=== PATIENT | female | born 1955 | race Caucasian/White ===

== ENCOUNTER 2016-12-09 12:08 | Emergency (ER) | payer MEDICARE, OTHER ==
[2016-12-09 13:37] VITALS: BP 98/60
--- NOTE | 2016-12-14 10:13 | ER ---
DATE SEEN: 12/09/2016 TIME SEEN: The patient was seen at 1220 hours. HISTORY OF PRESENT ILLNESS: This is a 61-year-old 2, para 2, woman who had onset of MS at age approximately 32 comes in with a history of decreased stooling. She takes MiraLAX daily, Senna [id number], and stopped smoking in 1998. Has depression. Weighs 150 pounds. Thirty years' duration of MS. She has had neurogenic bladder, dyslipidemia, frequent urinary tract infections, and documented in the chart-macular degeneration, however, she has been seen by Ophthalmology recently and said she did not have macular degeneration. This week, on Sunday, 3 days ago, they discontinued baclofen and propranolol was started. She notes she has had small bowel movements, but concerned about potential constipation. PAST SURGICAL HISTORY: Appendectomy, tubal, , and D and C. The patient has a suprapubic cystostomy. Last colonoscopy was done in December 2012. PAST MEDICAL HISTORY: As noted above. MEDICATIONS: As noted above. ALLERGIES: Penicillin. REVIEW OF SYSTEMS: HEENT: Hearing is good. Eyes, the patient sees fairly good. Wears glasses. No difficulty swallowing. No shortness of breath, cough, chest pain, irregular heartbeat, lightheadedness, or dizziness. GASTROINTESTINAL: No blood in the stool, black or tarry stool, or change in bowels, however, she notes she has smaller stools. No GERD. : Frequency, urgency, dysuria does have none, but she has incontinence of urine, wears Attends. MUSCULOSKELETAL: Decreased absent strength lower extremities. She has no decubitus ulcers. PHYSICAL EXAMINATION: VITAL SIGNS: Blood pressure 130/95, heart rate 81, respirations 16, oxygen saturation 97%, and temperature is 36.6 degrees centigrade. GENERAL: A very pleasant woman, who in spite of her stressors and pressure is able to generate a heartfelt smile and is very cordial. She is attended by her . He is very attentive to her needs. HEENT: PERRLA intact. Pharynx without abnormality. No thyromegaly or masses in neck. NECK: No cervical adenopathy. LUNGS: Clear without rales, rhonchi, or wheezes. HEART: S1, S2. No murmur. ABDOMEN: Soft. No guarding. No abdominal discomfort. She has a suprapubic catheter in place. Previous scar is healed. Mild discomfort slightly left of the midline incision from a . : No appreciable palpable stool noted. Quick look ultrasound, no extensive stool noted. She has had good peristalsis. The rectal exam is clear with ampullae empty. EXTREMITIES: Lower extremities with trace edema present. Deep tendon reflexes in upper and lower extremities are present. No upgoing toes. No decubitus ulcer. The patient has constipation. I chose not to do an x-ray. On the quick look ultrasound, there was no extensive stool noted. LABORATORY VALUES: White count is normal 7900, PMNs 79, lymphocytes 16, monos 4, hemoglobin 13.2, and platelets normal at 368,000. Sodium slightly low at 128, chloride low at 96, potassium 3.9 low normal, and glucose 119. Urinalysis not performed. ASSESSMENT: 1. Constipation. 2. Hyponatremia, hypochloremia. 3. The patient is not on water pills. 4. Salt-losing nephropathy, etiology indeterminate, needs to add salt to her diet. 5. Constipation, possibly related to hyponatremia and hypochloremia. Consider use of salt tablets. 6. Multiple sclerosis. 7. Paralysis of lower extremities. 8. No hypertension. 9. Status post previous , tubal ligation, appendectomy, and D and C. 10.Suprapubic cystostomy. 11.Dyslipidemia with cystostomy for neurogenic bladder. 12.History of depression. PLAN: If she still feels that she would like to try a stool medicine, to try lactulose 1 tablespoon b.i.d. Then, once stools are controlled, stay on this daily or try this for a week or try it for another week. If lactulose does not work, then try instead Sorbitol 70% 30 mL orally daily, and then once stool has stabilized, then a tablespoon daily. Follow up with doctor in a week. She has marked constipation, and if develops difficult problems to see the doctor earlier. I think she should get along reasonably well. She is to add salt to her diet. /[id number] VIJAYA/MAXI ALFORDD
== END 2016-12-09 13:28 | disposition home or self-care (01) ==
LOC: FB.ED 12:08
DX: K59.00 Constipation, unspecified (principal); E87.1 Hypo-osmolality and hyponatremia; E87.8 Other disorders of electrolyte and fluid balance, not elsewhere classified; G35 Multiple sclerosis; E78.5 Hyperlipidemia, unspecified; G83.9 Paralytic syndrome, unspecified; Z88.0 Allergy status to penicillin; Z90.49 Acquired absence of other specified parts of digestive tract
CPT/HCPCS: 36415; 80053; 84443; 85025; 99283

== ENCOUNTER 2016-12-13 15:05 | Emergency (ER) | payer MEDICARE, OTHER, MEDICAID ==
--- NOTE | 2016-12-13 15:41 | EDM.PDOC ---
ED HPI GENERAL MEDICAL PROBLEM - General Chief Complaint: Gastrointestinal Problem Stated Complaint: CONSTIPATION Time Seen by Provider: 12/13/16 15:25 Source of Information: Reports: Patient, Old Records History Limitations: Reports: No Limitations - History of Present Illness INITIAL COMMENTS - FREE TEXT/NARRATIVE: 61 yo female patient of Dr. Stubbs was seen here on 12/[address] Jean prescribed Miralax which she has been taking once a day, Lactulose and Sorbitol which she just started yesterday. Had an appt at 4 pm to see her provider, but she says they told her to come to the ER instead. She has not had fever or vomiting. She has some abdominal discomfort. She had an enema at home with some results, but not a lot of relief. Appetite has been diminished for about a week with reduced liquid and solid intake. Constipation is a chronic condition due to to her paraplegia. Onset: Gradual Duration: Chronic (Worse over the past week.), Getting Worse Location: Reports: Abdomen Quality: Reports: Dull Severity: Mild Improves with: Reports: None Worsens with: Reports: Other (? time) Context: Reports: Other (Chronic constipation) Associated Symptoms: Reports: Loss of Appetite. 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 (see below) (Miralax qd) - Related Data Allergies Allergy/AdvReac Type Severity Reaction Status Date / Time Penicillins Allergy Mild UNKNOWN Verified 12/13/16 15:19 Home Meds: Home Meds Polyethylene Glycol 3350 [MiraLAX] 17 gm PO DAILY 12/10/12 [History] Sertraline HCl 100 mg PO DAILY 12/10/12 [History] Lactulose 10 gm PO BID #1 bottle 12/09/16 [Rx] Propranolol HCl [Propranolol] 10 mg PO TID 12/09/16 [History] Ciprofloxacin HCl 250 mg PO BID #10 tablet 12/13/16 [Rx] Sorbitol [Sorbitol 70%] 30 ml PO DAILY 12/13/16 [History] Past Medical History HEENT History: Reports: Other (See Below) Other HEENT History: wears glasses Cardiovascular History: Reports: High Cholesterol Gastrointestinal History: Reports: Chronic Constipation Genitourinary History: Reports: Urinary Incontinence, Other (See Below) Other Genitourinary History: Catheter in place, suprapubic STAFFING ADMINISTRATOR History: Reports: Other Musculoskeletal History: MS, Wheelchair bound Neurological History: Reports: MS Other Neuro History: Wheelchair bound Psychiatric History: Reports: Depression - Infectious Disease History Infectious Disease History: Reports: Chicken Pox - Past Surgical History HEENT Surgical History: Reports: None GI Surgical History: Reports: Appendectomy, Colonoscopy Female Surgical History: Reports: Section Musculoskeletal Surgical History: Reports: None Social & Family History - Family History Family Medical History: Noncontributory - Tobacco Use Smoking Status *Q: Never Smoker Years of Tobacco use: 2 Used Tobacco, but Quit: Yes Month Tobacco Last Used: NO Second Hand Smoke Exposure: No - Alcohol Use Days Per Week of Alcohol Use: 0 - Recreational Drug Use Recreational Drug Use: No ED ROS GENERAL - Review of Systems Review Of Systems: See Below Constitutional: Reports: Decreased Appetite HEENT: Reports: No Symptoms Respiratory: Reports: No Symptoms Cardiovascular: Reports: No Symptoms GI/Abdominal: Reports: Abdominal Pain (mild, generalized.), Anorexia, Constipation, Decreased Appetite. Denies: Black Stool, Bloody Stool, Diarrhea, Distension, Hematemesis, Hematochezia, Melena, Nausea, Stool Incontinence, Vomiting : Reports: No Symptoms Musculoskeletal: Reports: No Symptoms Skin: Reports: No Symptoms Neurological: Reports: No Symptoms Psychiatric: Reports: No Symptoms ED EXAM, GI/ABD - Physical Exam Exam: See Below Exam Limited By: No Limitations General Appearance: Alert, WD/WN, No Apparent Distress Eyes: Bilateral: Normal Appearance Ears: Normal External Exam, Normal Canal, Hearing Grossly Normal Nose: Normal Inspection, Normal Mucosa, No Blood Throat/Mouth: Normal Inspection, Normal Lips, Normal Oropharynx, Normal Voice, No Airway Compromise Head: Atraumatic, Normocephalic Neck: Normal Inspection Respiratory/Chest: No Respiratory Distress, Lungs Clear, Normal Breath Sounds, No Accessory Muscle Use Cardiovascular: Regular Rate, Rhythm, No Edema GI/Abdominal Exam: Normal Bowel Sounds, Soft, Non-Tender Extremities: Normal Inspection Neurological: Alert, Oriented, CN II-XII Intact, Normal Cognition Psychiatric: Normal Affect, Normal Mood Skin Exam: Warm, Dry, Intact, Normal Color, No Rash Lymphatic: No Adenopathy Course - Orders/Labs/Meds Orders: Active Orders 24 hr Category Date Time Status CULTURE URINE [RM] Stat Lab 12/13/16 16:40 Received Labs: Laboratory Tests 1012/13/16 12/13/16 Range/Units 15:55 15:55 16:40 WBC 9.0 (4.5-12.0) X10-3/uL RBC 4.92 (3.23-5.20) x10(6)uL Hgb 14.7 (11.5-15.5) g/dL Hct 43.7 (30.0-51.3) % MCV 88.7 (80-96) fL MCH 29.9 (27.7-33.6) pg MCHC 33.8 (32.2-35.4) g/dL RDW 13.1 (11.5-15.5) % Plt Count 377 H (125-369) X10(3)uL Sodium 137 (135-145) mmol/L Potassium 4.4 (3.5-5.3) mmol/L Chloride 101 D (100-110) mmol/L Carbon Dioxide 25 (23-29) mmol/L BUN 6 (5-20) mg/dL Creatinine 0.8 (0.6-1.3) mg/dL Est Cr Clr Drug Dosing TNP Estimated GFR (MDRD) > 60 (>60) BUN/Creatinine Ratio 7.5 L (9-20) Glucose 110 (80-116) mg/dL Calcium 9.5 (8.6-10.2) mg/dL Urine Color Yellow (YELLOW) Urine Appearance Slightly cloudy (CLEAR) Urine pH 5.0 (5.0-6.5) Ur Specific [place] 1.030 H (1.010-1.025) Urine Protein Negative (NEGATIVE) mg/dL Urine Glucose (UA) Normal (NEGATIVE) mg/dL Urine Ketones Negative (NEGATIVE) mg/dL Urine Occult Blood Moderate H (NEGATIVE) Urine Nitrite Positive H (NEGATIVE) Urine Bilirubin Negative (NEGATIVE) Urine Urobilinogen Normal (NEGATIVE) mg/dL Ur Leukocyte Esterase Large H (NEGATIVE) Urine RBC 5-10 (0) Urine WBC 10-20 H (0) Ur Squamous Epith Cells Occasional (NS,R,O) Calcium Oxalate Crystal Few H (NS) Urine Bacteria Moderate H (NS) Meds: Medications Discontinued Medications Generic Name Dose Route Start Last Admin Trade Name Freq PRN Reason Stop Dose Admin Ciprofloxacin 250 mg 12/13/16 17:05 12/13/16 17:25 Ciprofloxacin Hcl PO 12/13/16 17:06 250 mg ONETIME ONE Administration Lactated Ringer's 1,000 mls @ 1,000 mls/hr 12/13/16 17:04 12/13/16 17:42 Ringers, Lactated IV 12/13/16 18:03 1,000 mls/hr BOLUS ONE Administration Lactulose 20 gm 12/13/16 15:57 12/13/16 16:10 Chronulac PO 12/13/16 15:58 20 gm ONETIME ONE Administration Departure - Departure Time of Disposition: 18:50 Disposition: Home, Self-Care 01 Condition: Fair Clinical Impression: Dehydration, mild, Chronic constipation, Cystitis - Discharge Information Prescriptions: Ciprofloxacin HCl 250 mg PO BID #10 tablet Referrals: Milan Stubbs MD [Primary Care Provider] - Forms: ED Department Discharge Additional Instructions: Take Miralax twice daily. If still not having regular, soft stools, then double the dose each time. Recheck with your provider as needed. Return for vomiting or fever. - My Orders Last 24 Hours: My Active Orders 12/13/16 16:40 CULTURE URINE [RM] Stat - Assessment/Plan Last 24 Hours: My Active Orders 12/13/16 16:40 CULTURE URINE [RM] Stat
[2016-12-13] MEDS ORDERED: Lactulose Soln 10 GM/15 ML 15 ML UD Cup PO ONE (15:57)
[2016-12-13] MEDS ORDERED: Lactated Ringers 1,000 ML IV ONE (17:04)
[2016-12-13] MEDS ORDERED: Ciprofloxacin 250 MG Tab PO ONE (17:05)
[2016-12-13 21:25] VITALS: BP 151/86
--- NOTE | 2016-12-18 16:37 | ER ---
FOLLOW-UP TO VISIT FROM 12/13/2016. I am dictating the urine culture result of Dr. Golden's patient, Shannon Nina. Diagnoses were constipation and she had UTI. Apparently, she has been started on Cipro. I have seen her not too long before and recently she was seen by Dr. Golden also. She was placed on Cipro to take twice a day. She has suprapubic catheter. ASSESSMENT: The patient has Elizabethkingia which is sensitive to Cipro and she has E. coli, which is resistant to Cipro. Consequently, I called the patient, she does not have any symptoms. She has suprapubic catheter. The patient will have colonization by multiple bacteria per IDSA and the IDSA suggests less is better, so with more different antibiotics more resistant organisms are likely to grow. As long as she is asymptomatic, she is to finish up her Cipro. No other antibiotics have been prescribed per IDSA recommendations. She can grow any bacteria with this foreign body with the catheter in place and we would prefer not to treat it because this increases the potential risk for other resistant organisms. /[id number] VIJAYA/MAXI PEREZ
== END 2016-12-13 19:20 | disposition home or self-care (01) ==
LOC: FB.ED 15:05
DX: K59.09 Other constipation (principal); N30.90 Cystitis, unspecified without hematuria; E86.0 Dehydration; E78.00 Pure hypercholesterolemia, unspecified; F32.9 Major depressive disorder, single episode, unspecified; Z88.0 Allergy status to penicillin; Z79.899 Other long term (current) drug therapy; Z90.49 Acquired absence of other specified parts of digestive tract
CPT/HCPCS: 36415; 80048; 81001; 85027; 87086; 87088; 96360; 99283; A9270; J7120; 87186

== ENCOUNTER 2021-10-18 15:02 | Emergency (ER) | payer MEDICARE, MEDICAID ==
[2021-10-18] MEDS ORDERED: Lidocaine 2% HCl 6 ML Jel MM STA (15:48)
[2021-10-18 16:45] VITALS: BP 133/83; PULSE 84
== END 2021-10-18 16:20 | disposition home or self-care (01) ==
LOC: FB.ED 15:02
DX: T83.091A Other mechanical complication of indwelling urethral catheter, initial encounter (principal); N31.9 Neuromuscular dysfunction of bladder, unspecified; G35 Multiple sclerosis; Z88.0 Allergy status to penicillin; Z79.899 Other long term (current) drug therapy; Z90.49 Acquired absence of other specified parts of digestive tract
CPT/HCPCS: 51705; 99283; A9270-GY

== ENCOUNTER 2021-11-07 13:22 | Emergency (ER) | payer MEDICARE, MEDICAID ==
[2021-11-07] MEDS: Lidocaine 2% HCl 6 ML Jel STA (13:30)
[2021-11-07 19:56] VITALS: BP 128/82; PULSE 68
== END 2021-11-07 13:50 | disposition home or self-care (01) ==
LOC: FB.ED 13:22
DX: T83.098A Other mechanical complication of other urinary catheter, initial encounter (principal); G35 Multiple sclerosis; E66.9 Obesity, unspecified; Z68.35 Body mass index [BMI] 35.0-35.9, adult; Z88.0 Allergy status to penicillin
CPT/HCPCS: 51705; 99283; A9270

== ENCOUNTER 2022-03-03 17:14 | Emergency (ER) | payer MEDICARE, MEDICAID ==
[2022-03-03] MEDS ORDERED: Ciprofloxacin 500 MG Tab PO STA (18:11)
[2022-03-03 19:57] VITALS: BP 149/77; PULSE 72
== END 2022-03-03 18:30 | disposition home or self-care (01) ==
LOC: FB.ED 17:14
DX: T83.511A Infection and inflammatory reaction due to indwelling urethral catheter, initial encounter (principal); N39.0 Urinary tract infection, site not specified; E66.9 Obesity, unspecified; Z68.30 Body mass index [BMI] 30.0-30.9, adult; Z88.0 Allergy status to penicillin
CPT/HCPCS: 51702; 81001; 87086; 87088; 87186; 99283; A9270-GY

== ENCOUNTER 2023-02-23 19:54 | Emergency (ER) | payer MEDICARE, OTHER, MEDICAID ==
[2023-02-23] MEDS ORDERED: Ciprofloxacin 500 MG Tab PO ONE (19:55)
[2023-02-23] MEDS ORDERED: Sodium Chloride 0.9% 10 ML Syringe FLUSH PRN (20:17)
[2023-02-23] MEDS ORDERED: Hydrocortisone Sodium Succinate 100 MG/2 ML SDV IVPUSH ONE (20:22)
[2023-02-23 20:28] LABS: BASOPHILS PERCENT AUTO 0.4 % (0.2-1.5); EOSINOPHILS ABSOLUTE AUTO 0.1 x10-3/uL (0.0-0.8); EOSINOPHILS PERCENT AUTO 1.3 % (0.6-8.1); HEMATOCRIT 36.9 % (34.2-48.2); HEMOGLOBIN 12.7 g/dL (11.4-15.5); LYMPHOCYTES ABSOLUTE AUTO 0.6 x10-3/uL (1.0-4.4); LYMPHOCYTES PERCENT AUTO 11.6 % (18.4-52.1); MEAN CORPUSCULAR HEMOGLOBIN 31.3 pg (23.9-33.9); MEAN CORPUSCULAR HGB CONC 34.5 g/dL (31.9-34.8); MEAN CORPUSCULAR VOLUME 90.8 fL (76.7-100.5); MEAN PLATELET VOLUME 8.5 fL (7.1-12.4); MONOCYTES ABSOLUTE AUTO 0.3 x10-3/uL (0.3-1.0); NEUTROPHILS ABSOLUTE AUTO 4.6 x10-3/uL (1.5-6.3); NEUTROPHILS PERCENT AUTO 81.7 % (30.8-76.2); PLATELET COUNT,PLT 245 x10(3)uL (151-488); RED BLOOD CELL COUNT 4.07 x10(6)uL (3.60-5.20); RED CELL DISTRIBUTION WIDTH 13.5 % (12.3-16.5); WHITE BLOOD CELL COUNT,WBC 5.6 x10-3/uL (3.0-10.3)
[2023-02-23 20:29] LABS: BLOOD UREA NITROGEN,BUN 13 mg/dL (7-18); BUN/CREATININE RATIO 16.3 (9-20); CALCIUM 9.3 mg/dL (8.6-10.2); CARBON DIOXIDE,CO2 28 mmol/L (21-32); CHLORIDE,CL 102 mmol/L (100-110); CREATININE 0.8 mg/dL (0.55-1.02); EST CRCL DRUG DOSING (CG) 50.36 mL/min; ESTIMATED GFR 82 mL/min (>60); GLUCOSE RANDOM 90 mg/dL (80-116); POTASSIUM,K 3.9 mmol/L (3.5-5.3); SODIUM,NA 136 mmol/L (135-145)
[2023-02-23] MEDS ORDERED: Sodium Chloride 0.9% 1,000 ML IV SCH (20:30)
[2023-02-23 20:35] LABS: A/G RATIO 0.9; ALANINE AMINOTRANSFERASE,ALT 24 U/L (12-36); ALBUMIN 3.4 g/dL (3.2-4.6); ALKALINE PHOSPHATASE 90 IU/L (56-112); ASPARTATE AMNIOTRANSFERASE,AST 25 IU/L (5-25); BILIRUBIN TOTAL 0.3 mg/dL (0.1-1.3)
[2023-02-23 20:39] LABS: LACTIC ACID 0.6 mmol/L (0.4-2.0)
[2023-02-23 20:50] LABS: APPEARANCE,URINE CLOUDY (CLEAR); BILIRUBIN,URINE NEGATIVE (NEGATIVE); COLOR,URINE YELLOW (YELLOW); GLUCOSE,URINE NORMAL (NORMAL); KETONES,URINE NEGATIVE (NEGATIVE); LEUKOCYTE ESTERASE,URINE LARGE (NEGATIVE); NITRITE,URINE POSITIVE (NEGATIVE); OCCULT BLOOD,URINE TRACE (NEGATIVE); PROTEIN,URINE NEGATIVE (NEGATIVE); RBC,URINE 0-5 (0-5); SQUAMOUS EPITHELIAL CELLS,UR FEW (NS,R,O); UROBILINOGEN,URINE NORMAL (NEGATIVE); WBC,URINE 50-75 (0-5)
[2023-02-23 20:51] LABS: AMORPHOUS SEDIMENT,URINE MODERATE; BACTERIA,URINE MANY (NS)
[2023-02-23] MEDS: Ketorolac 30 MG/ML SDV IVPUSH ONE ×2 (20:53→22:50)
[2023-02-23 21:22] LABS: INFLUENZA A NAA NEGATIVE (NEGATIVE); INFLUENZA B NAA NEGATIVE (NEGATIVE); RESPIRATORY SYNCYTIAL VIR NAA NEGATIVE (NEGATIVE)
[2023-02-23 21:24] LABS: CORONAVIRUS COVID-19 NAA NEGATIVE (NEGATIVE)
[2023-02-23] MEDS ORDERED: Meropenem 1 GM SDV IVPUSH ONE (22:09)
[2023-02-23] MEDS ORDERED: Ciprofloxacin in D5W 400 MG in Premix Bag 1 BAG IV ONE ×2 (22:10)
[2023-02-23] MEDS ORDERED: Ketorolac 30 MG/ML SDV ONE (22:49)
[2023-02-23 23:48] VITALS: BP 129/77; PULSE 95
[2023-02-24] MEDS ORDERED: Meropenem 1 GM SDV IVPUSH ONE (08:00)
== END 2023-02-23 23:40 | disposition home or self-care (01) ==
LOC: FB.ED 19:54
DX: G35 Multiple sclerosis (principal); N39.0 Urinary tract infection, site not specified; E78.00 Pure hypercholesterolemia, unspecified; E66.9 Obesity, unspecified; Z90.49 Acquired absence of other specified parts of digestive tract; Z88.0 Allergy status to penicillin; Z79.899 Other long term (current) drug therapy; Z68.41 Body mass index [BMI] 40.0-44.9, adult; Z20.822 Contact with and (suspected) exposure to COVID-19
CPT/HCPCS: 0241U; 36415; 70450; 71045; 80053; 81001; 83605; 85025; 86140; 87040; 87086; 87088; 87186; 96361; 96365; 96375; 99285-25; A9270-GY; J0744; J1720; J1885; J2185; J7030

== ENCOUNTER 2023-02-24 18:02 | Inpatient (IN) | payer MEDICARE, OTHER, MEDICAID ==
[2023-02-24] MEDS ORDERED: Sennosides/Docusate Sodium 50-8.6 MG Tab PO PRN (18:24)
[2023-02-24] MEDS ORDERED: Ondansetron 4 MG/2 ML SDV IV PRN (18:24)
[2023-02-24] MEDS ORDERED: Ketorolac 30 MG/ML SDV IVPUSH PRN (18:29)
[2023-02-24] MEDS ORDERED: Meropenem 1 GM SDV IVPUSH ONE (20:00)
[2023-02-24] MEDS: Sertraline 100 MG Tab PO SCH (21:10)
[2023-02-24] MEDS: Sodium Chloride 0.9% 1,000 ML IV SCH (21:11)
[2023-02-24] MEDS: Meropenem 1 GM SDV IVPUSH SCH (21:17)
[2023-02-24] MEDS: Enoxaparin 40 MG/0.4 ML Syringe SUBCUT SCH (21:25)
[2023-02-25] MEDS: Sodium Chloride 0.9% 1,000 ML IV SCH ×3 (04:02→21:08)
[2023-02-25] MEDS: Meropenem 1 GM SDV IVPUSH SCH ×3 (04:03→20:16)
[2023-02-25 06:13] LABS: BASOPHILS PERCENT AUTO 0.5 % (0.2-1.5); HEMATOCRIT 29.8 % (34.2-48.2); HEMOGLOBIN 10.2 g/dL (11.4-15.5); LYMPHOCYTES PERCENT AUTO 28.5 % (18.4-52.1); MEAN CORPUSCULAR HEMOGLOBIN 31.5 pg (23.9-33.9); MEAN CORPUSCULAR HGB CONC 34.3 g/dL (31.9-34.8); MEAN CORPUSCULAR VOLUME 91.8 fL (76.7-100.5); MONOCYTES ABSOLUTE AUTO 0.5 x10-3/uL (0.3-1.0); MONOCYTES PERCENT AUTO 13.2 % (4.4-15.7); NEUTROPHILS ABSOLUTE AUTO 2.1 x10-3/uL (1.5-6.3); NEUTROPHILS PERCENT AUTO 57.8 % (30.8-76.2); PLATELET COUNT,PLT 180 x10(3)uL (151-488); RED BLOOD CELL COUNT 3.24 x10(6)uL (3.60-5.20); RED CELL DISTRIBUTION WIDTH 13.4 % (12.3-16.5); WHITE BLOOD CELL COUNT,WBC 3.7 x10-3/uL (3.0-10.3)
[2023-02-25 06:34] LABS: A/G RATIO 0.9; ALANINE AMINOTRANSFERASE,ALT 23 U/L (12-36); ALBUMIN 2.7 g/dL (3.2-4.6); ALKALINE PHOSPHATASE 66 IU/L (56-112); ASPARTATE AMNIOTRANSFERASE,AST 29 IU/L (5-25); BILIRUBIN TOTAL 0.2 mg/dL (0.1-1.3); BLOOD UREA NITROGEN,BUN 10 mg/dL (7-18); BUN/CREATININE RATIO 11.1 (9-20); CALCIUM 8.3 mg/dL (8.6-10.2); CARBON DIOXIDE,CO2 26 mmol/L (21-32); CHLORIDE,CL 105 mmol/L (100-110); CREATININE 0.9 mg/dL (0.55-1.02); EST CRCL DRUG DOSING (CG) 44.76 mL/min; ESTIMATED GFR 71 mL/min (>60); GLUCOSE RANDOM 72 mg/dL (80-116); POTASSIUM,K 3.5 mmol/L (3.5-5.3); PROTEIN TOTAL,TP 5.7 g/dL (6.0-8.0); SODIUM,NA 137 mmol/L (135-145)
[2023-02-25] MEDS: Propranolol 10 MG Tab PO SCH (11:30)
[2023-02-25] MEDS: Pantoprazole 20 MG Tab, Delayed Release PO SCH (11:31)
[2023-02-25] MEDS: Saccharomyces Boulardii (Probiotic) 250 MG Cap PO SCH (11:32)
[2023-02-25] MEDS ORDERED: Polyethylene Glycol 3350 Powder 17 GM Packet PO PRN (16:15)
[2023-02-25] MEDS: Polyethylene Glycol 3350 Powder 17 GM Packet PO SCH (16:47)
[2023-02-25] MEDS: Enoxaparin 40 MG/0.4 ML Syringe SUBCUT SCH (20:15)
[2023-02-25] MEDS: Simvastatin 20 MG Tab PO SCH (20:17)
[2023-02-25] MEDS: Sertraline 100 MG Tab PO SCH (20:17)
[2023-02-26] MEDS: Pantoprazole 20 MG Tab, Delayed Release PO SCH (05:15)
[2023-02-26] MEDS: Meropenem 1 GM SDV IVPUSH SCH ×3 (05:15→20:16)
[2023-02-26] MEDS: Sodium Chloride 0.9% 1,000 ML IV SCH (05:15)
[2023-02-26] MEDS: Saccharomyces Boulardii (Probiotic) 250 MG Cap PO SCH (08:41)
[2023-02-26] MEDS: Propranolol 10 MG Tab PO SCH (08:41)
[2023-02-26] MEDS: Polyethylene Glycol 3350 Powder 17 GM Packet PO SCH (08:42)
[2023-02-26] MEDS: Sodium Chloride 0.9% 10 ML Syringe FLUSH PRN (13:30)
[2023-02-26] MEDS ORDERED: Acetaminophen 325 MG Tab PO PRN (16:33)
[2023-02-26] MEDS: Sertraline 50 MG Tab PO SCH (20:16)
[2023-02-26] MEDS: Simvastatin 20 MG Tab PO SCH (20:17)
[2023-02-26] MEDS: Enoxaparin 40 MG/0.4 ML Syringe SUBCUT SCH (20:17)
[2023-02-27] MEDS: Meropenem 1 GM SDV IVPUSH SCH ×3 (05:05→21:32)
[2023-02-27] MEDS: Sodium Chloride 0.9% 10 ML Syringe FLUSH PRN ×3 (05:07→14:05)
[2023-02-27] MEDS: Pantoprazole 20 MG Tab, Delayed Release PO SCH (05:08)
[2023-02-27 06:45] LABS: BASOPHILS PERCENT AUTO 0.8 % (0.2-1.5); EOSINOPHILS PERCENT AUTO 0.3 % (0.6-8.1); HEMATOCRIT 34.1 % (34.2-48.2); HEMOGLOBIN 11.5 g/dL (11.4-15.5); LYMPHOCYTES ABSOLUTE AUTO 1.3 x10-3/uL (1.0-4.4); LYMPHOCYTES PERCENT AUTO 39.8 % (18.4-52.1); MEAN CORPUSCULAR HEMOGLOBIN 30.5 pg (23.9-33.9); MEAN CORPUSCULAR HGB CONC 33.6 g/dL (31.9-34.8); MEAN CORPUSCULAR VOLUME 90.8 fL (76.7-100.5); MEAN PLATELET VOLUME 9.1 fL (7.1-12.4); MONOCYTES ABSOLUTE AUTO 0.3 x10-3/uL (0.3-1.0); MONOCYTES PERCENT AUTO 9.5 % (4.4-15.7); NEUTROPHILS ABSOLUTE AUTO 1.6 x10-3/uL (1.5-6.3); NEUTROPHILS PERCENT AUTO 49.6 % (30.8-76.2); PLATELET COUNT,PLT 197 x10(3)uL (151-488); RED BLOOD CELL COUNT 3.76 x10(6)uL (3.60-5.20); RED CELL DISTRIBUTION WIDTH 13.3 % (12.3-16.5); WHITE BLOOD CELL COUNT,WBC 3.3 x10-3/uL (3.0-10.3)
[2023-02-27 06:50] LABS: BLOOD UREA NITROGEN,BUN 7 mg/dL (7-18); BUN/CREATININE RATIO 8.8 (9-20); CALCIUM 8.6 mg/dL (8.6-10.2); CARBON DIOXIDE,CO2 32 mmol/L (21-32); CHLORIDE,CL 103 mmol/L (100-110); CREATININE 0.8 mg/dL (0.55-1.02); EST CRCL DRUG DOSING (CG) 50.36 mL/min; ESTIMATED GFR 82 mL/min (>60); GLUCOSE RANDOM 90 mg/dL (80-116); POTASSIUM,K 3.5 mmol/L (3.5-5.3); SODIUM,NA 140 mmol/L (135-145)
[2023-02-27] MEDS: Propranolol 10 MG Tab PO SCH (08:54)
[2023-02-27] MEDS: Saccharomyces Boulardii (Probiotic) 250 MG Cap PO SCH (08:54)
[2023-02-27] MEDS: Polyethylene Glycol 3350 Powder 17 GM Packet PO SCH (08:55)
[2023-02-27 10:18] LABS: BILIRUBIN,URINE NEGATIVE (NEGATIVE); GLUCOSE,URINE NORMAL (NORMAL); KETONES,URINE NEGATIVE (NEGATIVE); LEUKOCYTE ESTERASE,URINE NEGATIVE (NEGATIVE); NITRITE,URINE NEGATIVE (NEGATIVE); OCCULT BLOOD,URINE MODERATE (NEGATIVE); PROTEIN,URINE NEGATIVE (NEGATIVE); UROBILINOGEN,URINE NORMAL (NEGATIVE)
[2023-02-27 11:16] LABS: APPEARANCE,URINE CLEAR (CLEAR); BACTERIA,URINE FEW (NS); COLOR,URINE YELLOW (YELLOW); RBC,URINE 0-5 (0-5); SQUAMOUS EPITHELIAL CELLS,UR OCCASIONAL (NS,R,O); WBC,URINE 0-5 (0-5)
[2023-02-27] MEDS: Simvastatin 20 MG Tab PO SCH (21:31)
[2023-02-27] MEDS: Sertraline 50 MG Tab PO SCH (21:31)
[2023-02-27] MEDS: Enoxaparin 40 MG/0.4 ML Syringe SUBCUT SCH (21:32)
[2023-02-28] MEDS: Meropenem 1 GM SDV IVPUSH SCH (06:34)
[2023-02-28] MEDS: Pantoprazole 20 MG Tab, Delayed Release PO SCH (06:34)
[2023-02-28 06:56] LABS: BASOPHILS PERCENT AUTO 0.4 % (0.2-1.5); BLOOD UREA NITROGEN,BUN 8 mg/dL (7-18); BUN/CREATININE RATIO 8.9 (9-20); CARBON DIOXIDE,CO2 31 mmol/L (21-32); CHLORIDE,CL 104 mmol/L (100-110); CREATININE 0.9 mg/dL (0.55-1.02); EOSINOPHILS PERCENT AUTO 0.5 % (0.6-8.1); EST CRCL DRUG DOSING (CG) 44.76 mL/min; ESTIMATED GFR 71 mL/min (>60); GLUCOSE RANDOM 91 mg/dL (80-116); HEMATOCRIT 36.4 % (34.2-48.2); HEMOGLOBIN 12.3 g/dL (11.4-15.5); LYMPHOCYTES ABSOLUTE AUTO 1.9 x10-3/uL (1.0-4.4); LYMPHOCYTES PERCENT AUTO 48.5 % (18.4-52.1); MEAN CORPUSCULAR HEMOGLOBIN 30.9 pg (23.9-33.9); MEAN CORPUSCULAR HGB CONC 33.8 g/dL (31.9-34.8); MEAN CORPUSCULAR VOLUME 91.5 fL (76.7-100.5); MEAN PLATELET VOLUME 8.9 fL (7.1-12.4); MONOCYTES ABSOLUTE AUTO 0.3 x10-3/uL (0.3-1.0); MONOCYTES PERCENT AUTO 8.2 % (4.4-15.7); NEUTROPHILS ABSOLUTE AUTO 1.7 x10-3/uL (1.5-6.3); NEUTROPHILS PERCENT AUTO 42.4 % (30.8-76.2); PLATELET COUNT,PLT 210 x10(3)uL (151-488); POTASSIUM,K 3.9 mmol/L (3.5-5.3); RED BLOOD CELL COUNT 3.98 x10(6)uL (3.60-5.20); RED CELL DISTRIBUTION WIDTH 13.3 % (12.3-16.5); SODIUM,NA 140 mmol/L (135-145)
[2023-02-28] MEDS: Polyethylene Glycol 3350 Powder 17 GM Packet PO SCH (08:55)
[2023-02-28] MEDS: Propranolol 10 MG Tab PO SCH (08:55)
[2023-02-28] MEDS: Saccharomyces Boulardii (Probiotic) 250 MG Cap PO SCH (08:55)
[2023-02-28 13:26] VITALS: BP 115/68; PULSE 75
== END 2023-02-28 11:10 | disposition home health service (06) | DRG 698 ==
LOC: FB.MS 18:02
PROVIDERS: ADMIT Emergency Medicine; ATTEND Family Medicine
DX: T83.510A Infection and inflammatory reaction due to cystostomy catheter, initial encounter (principal); G93.41 Metabolic encephalopathy; D84.9 Immunodeficiency, unspecified; N30.00 Acute cystitis without hematuria; Y84.6 Urinary catheterization as the cause of abnormal reaction of the patient, or of later complication, without mention of misadventure at the time of the procedure; G35 Multiple sclerosis; E86.0 Dehydration; N31.9 Neuromuscular dysfunction of bladder, unspecified; E78.00 Pure hypercholesterolemia, unspecified; K59.01 Slow transit constipation; E66.9 Obesity, unspecified; F32.A Depression, unspecified; Z98.890 Other specified postprocedural states; Z79.899 Other long term (current) drug therapy; Z88.0 Allergy status to penicillin; Z11.52 Encounter for screening for COVID-19; Z74.01 Bed confinement status; Z51.5 Encounter for palliative care; Z90.49 Acquired absence of other specified parts of digestive tract; Z68.31 Body mass index [BMI] 31.0-31.9, adult
CPT/HCPCS: 36415; 80048; 80053; 81001; 85025; 99223; 99232; 99238; A9270-GY; J1650; J2185; J2405; J3490; J7030

== ENCOUNTER 2023-10-25 15:07 | Emergency (ER) | payer MEDICARE, OTHER, MEDICAID ==
[2023-10-25] MEDS: Albuterol/Ipratropium 3.0-0.5 MG/3 ML Neb Soln NEB ONE (17:04)
[2023-10-25] MEDS ORDERED: Sodium Chloride 0.9% 10 ML Syringe FLUSH PRN (17:48)
[2023-10-25] MEDS: cefTRIAXone 2 GM Vial IVPUSH ONE (18:08)
[2023-10-25 18:09] LABS: HEMATOCRIT 38.6 % (34.2-48.2); MEAN CORPUSCULAR HEMOGLOBIN 30.6 pg (23.9-33.9); MEAN CORPUSCULAR HGB CONC 33.8 g/dL (31.9-34.8); MEAN CORPUSCULAR VOLUME 90.5 fL (76.7-100.5); MEAN PLATELET VOLUME 8.7 fL (7.1-12.4); PLATELET COUNT,PLT 285 x10(3)uL (151-488); RED BLOOD CELL COUNT 4.26 x10(6)uL (3.60-5.20); RED CELL DISTRIBUTION WIDTH 13.9 % (12.3-16.5); WHITE BLOOD CELL COUNT,WBC 15.2 x10-3/uL (3.0-10.3)
[2023-10-25 18:11] LABS: BLOOD UREA NITROGEN,BUN 10 mg/dL (7-18); BUN/CREATININE RATIO 9.1 (9-20); CALCIUM 9.1 mg/dL (8.6-10.2); CARBON DIOXIDE,CO2 25 mmol/L (21-32); CHLORIDE,CL 100 mmol/L (100-110); CREATININE 1.1 mg/dL (0.55-1.02); EST CRCL DRUG DOSING (CG) 41.62 mL/min; ESTIMATED GFR 55 mL/min (>60); GLUCOSE RANDOM 103 mg/dL (80-116); POTASSIUM,K 4.4 mmol/L (3.5-5.3); SODIUM,NA 136 mmol/L (135-145)
[2023-10-25] MEDS: metroNIDAZOLE/Normal Saline 500 MG in Premix Bag 1 BAG IV ONE (18:15)
[2023-10-25 18:17] LABS: A/G RATIO 0.8; ALANINE AMINOTRANSFERASE,ALT 24 U/L (12-36); ALBUMIN 3.5 g/dL (3.2-4.6); ALKALINE PHOSPHATASE 99 IU/L (56-112); ASPARTATE AMNIOTRANSFERASE,AST 29 IU/L (5-25); BILIRUBIN TOTAL 0.3 mg/dL (0.1-1.3); PROTEIN TOTAL,TP 7.7 g/dL (6.0-8.0)
[2023-10-25 18:21] LABS: LACTIC ACID 2.6 mmol/L (0.4-2.0)
[2023-10-25 18:22] LABS: LYMPHOCYTES PERCENT MAN 4 % (13-37); MONOCYTES PERCENT MAN 4 % (4-12); SEG NEUTROPHILS PERCENT MAN 92 % (46-82)
[2023-10-25] MEDS: Sodium Chloride 0.9% 1,000 ML IV SCH ×2 (19:17→20:30)
[2023-10-25] MEDS: Ondansetron 4 MG/2 ML SDV IVPUSH ONE (20:31)
[2023-10-25] MEDS: Acetaminophen 500 MG Tab PO ONE (20:31)
[2023-10-25 21:13] VITALS: BP 116/58; PULSE 118
== END 2023-10-25 21:30 ==
LOC: FB.ED 15:07
DX: A41.9 Sepsis, unspecified organism (principal); T17.908A Unspecified foreign body in respiratory tract, part unspecified causing other injury, initial encounter; N30.00 Acute cystitis without hematuria; G35 Multiple sclerosis; E78.00 Pure hypercholesterolemia, unspecified; E66.9 Obesity, unspecified; Z90.49 Acquired absence of other specified parts of digestive tract; Z79.899 Other long term (current) drug therapy; Z88.0 Allergy status to penicillin; Z68.31 Body mass index [BMI] 31.0-31.9, adult; W44.9XXA Unspecified foreign body entering into or through a natural orifice, initial encounter
CPT/HCPCS: 36415; 71045; 80053; 83605; 85025; 87040; 93005; 93010; 94640; 96361; 96365; 96375; 99285; 99285-25; A9270-GY; J0696; J1836; J2405; J7030; J7620

== ENCOUNTER 2024-06-11 11:04 | Emergency (ER) | payer MEDICARE, MEDICAID ==
[2024-06-11] MEDS ORDERED: Sodium Chloride 0.9% 10 ML Syringe FLUSH PRN (11:27)
[2024-06-11] MEDS: Sodium Chloride 0.9% 1,000 ML IV ONE (11:38)
[2024-06-11 11:47] LABS: BASOPHILS PERCENT AUTO 0.3 % (0.2-1.5); EOSINOPHILS ABSOLUTE AUTO 0.1 x10-3/uL (0.0-0.8); EOSINOPHILS PERCENT AUTO 0.9 % (0.6-8.1); HEMATOCRIT 40.8 % (34.2-48.2); HEMOGLOBIN 14.1 g/dL (11.4-15.5); LYMPHOCYTES ABSOLUTE AUTO 1.4 x10-3/uL (1.0-4.4); LYMPHOCYTES PERCENT AUTO 25.4 % (18.4-52.1); MEAN CORPUSCULAR HEMOGLOBIN 32.2 pg (23.9-33.9); MEAN CORPUSCULAR HGB CONC 34.4 g/dL (31.9-34.8); MEAN CORPUSCULAR VOLUME 93.4 fL (76.7-100.5); MEAN PLATELET VOLUME 8.7 fL (7.1-12.4); MONOCYTES ABSOLUTE AUTO 0.3 x10-3/uL (0.3-1.0); MONOCYTES PERCENT AUTO 5.8 % (4.4-15.7); NEUTROPHILS ABSOLUTE AUTO 3.8 x10-3/uL (1.5-6.3); NEUTROPHILS PERCENT AUTO 67.7 % (30.8-76.2); PLATELET COUNT,PLT 276 x10(3)uL (151-488); RED BLOOD CELL COUNT 4.37 x10(6)uL (3.60-5.20); RED CELL DISTRIBUTION WIDTH 13.3 % (12.3-16.5); WHITE BLOOD CELL COUNT,WBC 5.6 x10-3/uL (3.0-10.3)
[2024-06-11 11:50] LABS: BLOOD UREA NITROGEN,BUN 9 mg/dL (7-18); CALCIUM 9.4 mg/dL (8.6-10.2); CARBON DIOXIDE,CO2 28 mmol/L (21-32); CHLORIDE,CL 102 mmol/L (100-110); ESTIMATED GFR 62 mL/min (>60); GLUCOSE RANDOM 95 mg/dL (80-116); POTASSIUM,K 4.6 mmol/L (3.5-5.3); SODIUM,NA 138 mmol/L (135-145)
[2024-06-11 11:56] LABS: A/G RATIO 0.8; ALANINE AMINOTRANSFERASE,ALT 25 U/L (12-36); ALBUMIN 3.7 g/dL (3.2-4.6); ALKALINE PHOSPHATASE 100 IU/L (56-112); ASPARTATE AMNIOTRANSFERASE,AST 28 IU/L (5-25); BILIRUBIN TOTAL 0.3 mg/dL (0.1-1.3); PROTEIN TOTAL,TP 8.1 g/dL (6.0-8.0)
[2024-06-11 12:00] LABS: LACTIC ACID 0.6 mmol/L (0.4-2.0)
[2024-06-11 12:51] LABS: BILIRUBIN,URINE NEGATIVE (NEGATIVE); GLUCOSE,URINE NORMAL (NORMAL); KETONES,URINE NEGATIVE (NEGATIVE); LEUKOCYTE ESTERASE,URINE LARGE (NEGATIVE); NITRITE,URINE POSITIVE (NEGATIVE); OCCULT BLOOD,URINE MODERATE (NEGATIVE); PROTEIN,URINE 30 mg/dL (NEGATIVE); UROBILINOGEN,URINE NORMAL (NEGATIVE)
[2024-06-11 12:54] LABS: APPEARANCE,URINE CLOUDY (CLEAR); COLOR,URINE YELLOW (YELLOW)
[2024-06-11 13:06] LABS: BACTERIA,URINE MANY (NS); RBC,URINE 0-5 (0-5); SQUAMOUS EPITHELIAL CELLS,UR RARE (NS,R,O); TRIPLE PHOSPHATE CRYSTALS,UR FEW (NS)
[2024-06-11 14:21] VITALS: BP 129/68; PULSE 74
== END 2024-06-11 14:06 | disposition home or self-care (01) ==
LOC: FB.ED 11:04
DX: R19.7 Diarrhea, unspecified (principal); T47.2X5A Adverse effect of stimulant laxatives, initial encounter; N39.0 Urinary tract infection, site not specified; G35 Multiple sclerosis; E78.00 Pure hypercholesterolemia, unspecified; E66.9 Obesity, unspecified; Z88.0 Allergy status to penicillin; Z79.899 Other long term (current) drug therapy; Z79.811 Long term (current) use of aromatase inhibitors; Z90.49 Acquired absence of other specified parts of digestive tract; Z87.891 Personal history of nicotine dependence
CPT/HCPCS: 80053; 81001; 83605; 85025; 86140; 87086; 87088; 87186; 96360; 99283; 99284-25; J7030

== ENCOUNTER 2024-09-09 12:53 | Emergency (ER) | payer MEDICARE, OTHER, MEDICAID ==
[2024-09-09] MEDS: Acetaminophen/oxyCODONE 325-5 MG Tab PO STA (13:16)
[2024-09-09] MEDS ORDERED: Naloxone 0.4 MG/ML SDV IVPUSH PRN (14:27)
[2024-09-09] MEDS ORDERED: HYDROmorphone 2 MG/ML SDV ONE (14:31)
[2024-09-09] MEDS: Ondansetron 4 MG/2 ML SDV IVPUSH ONE (14:34)
[2024-09-09] MEDS: HYDROmorphone 2 MG/ML SDV IVPUSH ONE (14:35)
[2024-09-09 16:04] VITALS: BP 118/76; PULSE 80
== END 2024-09-09 16:05 ==
LOC: FB.ED 12:53
DX: S72.402A Unspecified fracture of lower end of left femur, initial encounter for closed fracture (principal); S72.401A Unspecified fracture of lower end of right femur, initial encounter for closed fracture; E66.9 Obesity, unspecified; Z88.0 Allergy status to penicillin; Z79.899 Other long term (current) drug therapy; Z90.49 Acquired absence of other specified parts of digestive tract; W19.XXXA Unspecified fall, initial encounter
CPT/HCPCS: 73562; 73600; 96374; 96375; 99285; A9270; J1171; J2405; 99284